=== PATIENT | female | born 1995 | race African-American/Black ===

== ENCOUNTER 2023-02-26 09:17 | Emergency (ER) | payer OTHER, BC, SELFPAY ==
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
[2023-02-26 09:34] VITALS: BP 148/85; PULSE 85; RESP 16; TEMP 36.6; O2SAT 99
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
[2023-02-26] MEDS: ACETAMINOPHEN 325 MG TABLET 650 MG PO (13:15)
[2023-02-26] MEDS: KETOROLAC 30 MG/ML VIAL (*BKC) 15 MG IM (13:15)
[2023-02-26] MEDS: CYCLOBENZAPRINE HCL 5 MG TABLET PO (13:15)
[2023-02-26 14:13] VITALS: BP 129/76; PULSE 82; RESP 18; TEMP 36.6; O2SAT 100
== END 2023-02-26 14:17 | disposition home or self-care (01) ==
PROVIDERS: Emergency Provider Student in an Organized Health Care Education/Training Program; PCP Family Medicine
DX: S06.0X0A Concussion without loss of consciousness, initial encounter (principal); S39.92XA Unspecified injury of lower back, initial encounter; V49.40XA Driver injured in collision with unspecified motor vehicles in traffic accident, initial encounter
CPT/HCPCS: 70450; 72125; 72131; 81025; 96372; 99284; A9270; J1885